=== PATIENT | female | born 1975 | race Caucasian/White ===

== ENCOUNTER 2016-12-21 21:31 | Emergency (ER) | payer OTHER ==
--- NOTE | 2016-12-21 21:48 | PDOC ---
History of Present Illness - History of Present Illness Initial Comments: 12/21/16 22:42 Patient is a 41 year old female with significant medical hx of acid reflux who is presenting to the ED with heartburn for the past week. Patient reports that she's been having acid reflux more than usual this past week especially after she eats and when she's lying down at night. She's complaining of throat pain, difficulty swallowing, and dry cough. Her pain begins in the epigastric region and radiates up to her ears. Social Hx/Diet: Patient reports she drinks a lot of soda and coffee every day. Denies tobacco or alcohol use. Denies URI symptoms. PCP: Lizette Brito MD <Priyanka Pearce - Last Filed: 12/22/16 00:17> <Lily Avery - Last Filed: 12/22/16 00:46> - General Stated Complaint: ACID REFLUX Time Seen by Provider: 12/21/16 21:47 Past History <Priyanka Pearce - Last Filed: 12/22/16 00:17> - Past Medical History Psychiatric Problems: Yes (ANXIETY,OCD) Suicide Attempt (Hx): No - Immunization History Immunization Up to Date: Yes - Psycho/Social/Smoking Cessation Hx Anxiety: Yes Suicidal Ideation: No Smoking History: Never smoked Have you smoked in the past 12 months: No Hx Alcohol Use: No Drug/Substance Use Hx: No Substance Use Type: None <Lily Avery - Last Filed: 12/22/16 00:46> - Past Medical History Allergies/Adverse Reactions: Allergies Allergy/AdvReac Type Severity Reaction Status Date / Time cephalexin Allergy Severe Swelling Verified 12/21/16 23:05 Home Medications: Ambulatory Orders Sertraline HCl [Zoloft -] 25 mg PO DAILY 06/16/16 Review of Systems - Review of Systems Comments:: 12/21/16 22:47 CONSTITUTIONAL: Absent: fever, chills, diaphoresis, generalized weakness, malaise, loss of appetite HEENT: Present: throat pain, difficulty swallowing Absent: rhinorrhea, nasal congestion, throat swelling, mouth swelling, ear pain , eye pain, visual changes CARDIOVASCULAR: Absent: chest pain, syncope, palpitations, irregular heart rate, lightheadedness , peripheral edema RESPIRATORY: Present: dry cough Absent: shortness of breath, dyspnea with exertion, orthopnea, wheezing, stridor , hemoptysis GASTROINTESTINAL: Present: acid reflux, epigastric pain Absent: abdominal distension, nausea, vomiting, diarrhea, constipation, melena, hematochezia GENITOURINARY: Absent: dysuria, frequency, urgency, hesitancy, hematuria, flank pain, genital pain MUSCULOSKELETAL: Absent: myalgia, arthralgia, joint swelling SKIN: Absent: rash, itching, pallor HEMATOLOGIC/IMMUNOLOGIC: Absent: easy bleeding, easy bruising, lymphadenopathy, frequent infections ENDOCRINE: Absent: unexplained weight gain, unexplained weight loss, heat intolerance, cold intolerance NEUROLOGIC: Absent: headache, focal weakness or paresthesia, dizziness, unsteady gait, seizure, mental status changes, bladder or bowel incontinence. PSYCHIATRIC: Absent: anxiety, depression, suicidal or homicidal ideation, hallucinations <Priyanka Pearce - Last Filed: 12/22/16 00:17> *Physical Exam - Physical Exam Comments: 12/21/16 22:48 GENERAL: Well developed, well nourished. Awake and alert. No acute distress. HEENT: Normocephalic, atraumatic. PERRLA, EOMI. No conjunctival pallor. Sclera are non- icteric. Moist mucous membranes. Oropharynx is clear. NECK: Supple. Full ROM. No JVD. Carotid pulses 2+ and symmetric, without bruits. No thyromegaly. No lymphadenopathy. CARDIOVASCULAR: Regular rate and rhythm. No murmurs, rubs, or gallops. Distal pulses are 2+ and symmetric. PULMONARY: No evidence of respiratory distress. Lungs clear to auscultation bilaterally. No wheezing, rales or rhonchi. ABDOMINAL: Soft. Non-tender. Non-distended. No rebound or guarding. No organomegaly. Normoactive bowel sounds. MUSCULOSKELETAL: Normal range of motion at all joints. No bony deformities or tenderness. No CVA tenderness. EXTREMITIES: No cyanosis. No clubbing. No edema. No calf tenderness. SKIN: Warm and dry. Normal capillary refill. No rashes. No jaundice. NEUROLOGICAL: Alert, awake, appropriate. Cranial nerves 2-12 intact. Normal speech. Gait is normal without ataxia. PSYCHIATRIC: Cooperative. Good eye contact. Appropriate mood and affect. <Priyanka Pearce - Last Filed: 12/22/16 00:17> Heart Score/ECG Review #1 12/22/16 00:17 Normal sinus rhythm at 64 bpm Normal ECG <Priyanka Pearce - Last Filed: 12/22/16 00:17> *DC/Admit/Observation/Transfer - Attestations Scribe Attestion: 12/21/16 22:49 Documentation prepared by Priyanka Pearce, acting as medical language specialist for Lily Avery MD. <Priyanka Pearce - Last Filed: 12/22/16 00:17> <Lily Avery - Last Filed: 12/22/16 00:46> Diagnosis at time of Disposition: Cough Gastroesophageal reflux disease Qualifiers: Esophagitis presence: with esophagitis Qualified Code(s): K21.0 - Gastro- esophageal reflux disease with esophagitis - Discharge Dispostion Disposition: HOME Condition at time of disposition: Stable - Referrals Referrals: Lizette Cordova MD [Primary Care Provider] - - Patient Instructions Printed Discharge Instructions: DI for Gastroesophageal Reflux Disease (GERD), DI for Cough -- Adult Additional Instructions: please supervisor picking crew your prescriptions at [facility] pharmacy followup with your regular physician
[2016-12-21] MEDS ORDERED: MAG HYDROX/AL HYDROX/SIMETH 30 ML UNIT-DOSE CUP PO ONE (22:21)
[2016-12-21] MEDS ORDERED: RANITIDINE HCL 150 MG TABLET (FP) PO ONE (22:21)
[2016-12-21 22:43] VITALS: BP 124/77; PULSE 77; TEMP 98.7; BMI 24.0
[2016-12-22] MEDS ORDERED: guaiFENesin/CODEINE 10 ML UNIT-DOSE CUPS PO ONE (00:43)
[2016-12-22] MEDS ORDERED: guaiFENesin/CODEINE 5 ML UNIT-DOSE CUPS PO ONE (00:47)
--- NOTE | 2016-12-22 23:20 | EKG ---
Test Reason : Blood Pressure : / mmHG Vent. Rate : 064 BPM Atrial Rate : 064 BPM P-R Int : 160 ms QRS Dur : 084 ms QT Int : 400 ms P-R-T Axes : 032 057 035 degrees QTc Int : 412 ms NORMAL SINUS RHYTHM NONSPECIFIC T WAVE ABNORMALITY WHEN COMPARED WITH ECG OF 08-JUL-2009 10:04, T WAVE VARIATION Confirmed by KIRIT FREY MD ([id number]) on 12/22/2016 11:20:40 PM Referred By: Confirmed By:KIRIT FREY MD
== END 2016-12-22 00:53 | disposition home or self-care (01) ==
LOC: JER 21:31
DX: K21.0 Gastro-esophageal reflux disease with esophagitis (principal)
CPT/HCPCS: 93005; 93010; 99283-25

== ENCOUNTER 2017-07-03 22:05 | Emergency (ER) | payer OTHER ==
[2017-07-03 22:16] VITALS: BP 140/99; PULSE 68; TEMP 98; BMI 31.2
[2017-07-03] MEDS ORDERED: TETANUS AND DIPHTHERIA TOXOID 0.5 ML DISP.SYRIN IM ONE (22:30)
--- NOTE | 2017-07-03 22:30 | PDOC ---
History of Present Illness - General History Source: Patient Exam Limitations: No Limitations - History of Present Illness Initial Comments: 07/03/17 23:12 41-year-old female presents to the emergency department complaining of an injury to her left great toe. Patient states while she was unfolding a day bed, the metal edge accidentally hit the distal part of her great left toenail causing the distal half of her nail everted upward. Bleeding controlled with direct pressure prior to her arrival. Patient denies extremity numbness or tingling sensation. Patient denies any other injuries. Unknown last tetanus. Timing/Duration: 1/2 hour Associated Symptoms: reports: denies symptoms <Rene Roman - Last Filed: 07/03/17 23:07> <River Jose - Last Filed: 07/03/17 23:17> - General Chief Complaint: Pain Stated Complaint: TOE INJURY Time Seen by Provider: 07/03/17 22:22 Past History - Past Medical History Psychiatric Problems: Yes (ANXIETY,OCD) Suicide Attempt (Hx): No - Immunization History Immunization Up to Date: Yes - Psycho/Social/Smoking Cessation Hx Anxiety: Yes Suicidal Ideation: No Smoking History: Never smoked Have you smoked in the past 12 months: No Information on smoking cessation initiated: No Hx Alcohol Use: No Drug/Substance Use Hx: No Substance Use Type: None <Rene Roman - Last Filed: 07/03/17 23:07> <River Jose - Last Filed: 07/03/17 23:17> - Past Medical History Allergies/Adverse Reactions: Allergies Allergy/AdvReac Type Severity Reaction Status Date / Time cephalexin Allergy Severe Swelling Verified 07/03/17 22:11 Home Medications: Ambulatory Orders Sertraline HCl [Zoloft] 100 mg PO DAILY 07/03/17 Review of Systems - Review of Systems Able to Perform ROS?: Yes Comments:: 07/03/17 22:28 All other ROS reviwed and are negative MUSCULOSKELETAL: Absent: myalgia, arthralgia, joint swelling SKIN: Absent: rash, itching, pallor HEMATOLOGIC/IMMUNOLOGIC: Absent: easy bleeding, easy bruising, lymphadenopathy, frequent infections left great toe; distal half nail everted upwards Is the patient limited Slovenian proficient: No <Rene Roman - Last Filed: 07/03/17 23:07> *Physical Exam - Vital Signs Last Vital Signs Temp Pulse Resp BP Pulse Ox 98.0 F 68 20 140/99 98 07/03/17 22:12 07/03/17 22:12 07/03/17 22:12 07/03/17 22:12 07/03/17 22:12 - Physical Exam Comments: 07/03/17 22:29 MUSCULOSKELETAL Normal range of motion at all joints. No bony deformities or tenderness. No CVA tenderness. EXTREMITIES: No cyanosis. No clubbing. No edema. No calf tenderness. SKIN: Warm and dry. Normal capillary refill. No rashes. No jaundice. left great toe distal mid nail everted upward superficial distal nailbed avulsion lac cap refill <2sec <Rene Roman - Last Filed: 07/03/17 23:07> - Vital Signs Last Vital Signs Temp Pulse Resp BP Pulse Ox 98.0 F 68 20 140/99 98 07/03/17 22:12 07/03/17 22:12 07/03/17 22:12 07/03/17 22:12 07/03/17 22:12 <River Jose - Last Filed: 07/03/17 23:17> Procedures - Additional Procedures Progress: 07/03/17 23:13 Nail avulsion wound repair: Site prepped with betadine. Digital block to the 1st metatarsal of the left foot: 7 ccs of 2% lidocaine Wound irrigated with normal NS. No lacerations noted on exploration. Distal 1/3 of the exposed avulsed nail trimmed and removed. Sterile dressing applied. <River Jose - Last Filed: 07/03/17 23:17> ED Treatment Course - Medications Given in the ED: ED Medications Discontinued Medications Generic Name Dose Route Start Last Admin Trade Name Freq PRN Reason Stop Dose Admin Lidocaine HCl 3 ml 07/03/17 22:36 07/03/17 22:38 Xylocaine 1% SQ 07/03/17 22:37 3 ml ONCE ONE Administration Tetanus/Diphtheria Toxoids Adsorbed 0.5 ml 07/03/17 22:30 07/03/17 22:34 Decavac IM 07/03/17 22:31 0.5 ml .ONCE ONE Administration <River Jose - Last Filed: 07/03/17 23:17> *DC/Admit/Observation/Transfer - Discharge Dispostion Admit: No <Rene Roman - Last Filed: 07/03/17 23:07> <River Jose - Last Filed: 07/03/17 23:17> Diagnosis at time of Disposition: Avulsion of skin of toe Qualifiers: Encounter type: initial encounter Qualified Code(s): S91.109A - Unspecified open wound of unspecified toe(s) without damage to nail, initial encounter - Discharge Dispostion Disposition: HOME Condition at time of disposition: Stable - Referrals Referrals: Mo Fenton MD [Staff Physician] - - Patient Instructions Additional Instructions: Keep the toe clean and dry for 24 hours Keep the incision clean and dry for 24 hours. After 24 hours, you may allow the soap and water to rinse off your incision. Avoid direct pressure of the water to the incision. Pat the incision dry with a clean clothe. Apply a small amount of bacitracin onto the incision. Cover the incision loosely with a bandaid. Take tylenol/motrin as needed for pain. Follow up with your physician or the ER in 48 hours for a wound check. Return to the ER if you notice red streaks, increase redness/swelling/severe pain to the incision.
[2017-07-03] MEDS ORDERED: LIDOCAINE HCL 1%, 10 MG/ML (50 mL VIAL) SQ ONE (22:36)
[2017-07-03] MEDS ORDERED: LIDOCAINE HCL 2% (20ML MULTI-DOSE VIAL) NR ONE (22:37)
== END 2017-07-03 23:18 | disposition home or self-care (01) ==
LOC: JER 22:05
PROC: 0HDRXZZ Extraction of Toe Nail, External Approach (ICD-10-PCS; principal; 2017-07-03)
DX: S91.109A Unspecified open wound of unspecified toe(s) without damage to nail, initial encounter (principal); F41.9 Anxiety disorder, unspecified
CPT/HCPCS: 11730; 99282-25

== ENCOUNTER 2019-05-20 18:09 | Emergency (ER) | payer OTHER ==
[2019-05-20 18:15] VITALS: BMI 30.9
--- NOTE | 2019-05-20 18:40 | PDOC ---
History of Present Illness - General Chief Complaint: Hemorrhoids Stated Complaint: ABD PAIN Time Seen by Provider: 05/20/19 18:40 History Source: Patient Exam Limitations: No Limitations - History of Present Illness Initial Comments: 05/20/19 19:01 43 year old female with PMH hemorrhoids, anxiety, OCD presented to ED for rectal pain x5 days. Pt reported that she had a hemorrhoidectomy 05/09/[address] Reyes, and was feeling better, but 5 days ago began having rectal pain again. Pt reported constipation, as it is very painful for her to use the restroom, she stated she has not had a full solid bowel movement sine the procedure, and has had loose stool. Pt is currently using 1 Percocet BID, Lactulose, Miralax, Fiber, sitz baths. Surgical history: tubal ligation, hemorrhoidectomy Past History - Past Medical History Allergies/Adverse Reactions: Allergies Allergy/AdvReac Type Severity Reaction Status Date / Time cephalexin Allergy Severe Swelling Verified 05/20/19 18:15 Home Medications: Ambulatory Orders Sertraline HCl [Zoloft] 100 mg PO DAILY 07/03/17 Lactulose 10 gm PO TID 05/20/19 Lidocaine 2% Uro-Jet [Xylocaine 2% Uro-Jet] 5 ml WI BID PRN #2 cartridge Oxycodone HCl/Acetaminophen [Percocet 5-325 mg Tablet] 1 tab PO BID 05/20/19 [id number]/Sod Sulf,Bicarb,Cl/KCl [Golytely Solution] 4,000 ml PO ONCE #1 soln.recon 05/20/19 COPD: No Psychiatric Problems: Yes (ANXIETY,OCD) - Immunization History Immunization Up to Date: Yes - Suicide/Smoking/Psychosocial Hx Smoking History: Never smoked Have you smoked in the past 12 months: No Hx Alcohol Use: No Drug/Substance Use Hx: No Substance Use Type: None Review of Systems - Review of Systems Able to Perform ROS?: Yes Comments:: 05/20/19 18:53 General: denied fever, chills, generalized weakness. HEENT: denied sore throat, rhinorrhea, ear pain. Heart: denied chest pain, palpitations, syncope, diaphoresis. Respiratory: denied shortness of breath, cough, sputum production, hemoptysis. Abdomen: admitted to constipation, rectal pain, abdominal pain. denied nausea, vomiting, diarrhea, blood in stool. : denied dysuria, increased urinary frequency, hematuria, urinary incontinence , flank pain. Back: denied back pain. Musculoskeletal: denied joint pain, muscle pain, joint swelling. Neurological: denied headache, dizziness, numbness, tingling, weakness. Skin: denied rash, laceration, abrasion. *Physical Exam - Vital Signs Last Vital Signs Temp Pulse Resp BP Pulse Ox 98.2 F 88 18 124/85 98 05/20/19 18:12 05/20/19 18:12 05/20/19 18:12 05/20/19 18:12 05/20/19 18:12 - Physical Exam Comments: 05/20/19 18:53 Constitutional: Well-nourished, Well-developed, appearing stated age. HEENT: head is normocephalic, atraumatic. EOMI. PERRLA. Neck: supple. Full ROM. Heart: regular rhythm. no murmurs, rubs or gallops. Lungs: clear to auscultation bilaterally. no crackles, rhonchi or wheezing. no stridor. Abdomen: soft, nontender, flat. normal bowel sounds. no rebound, guarding, masses. Rectal: multiple external hemorrhoids. hard stool in rectal vault. tenderness to palpation of hemorrhoid at the 1200 position. no abscess. Extremities: peripheral pulses intact. no lower extremity edema. Neurological: CN 2-12 grossly intact. moves all four extremities. Psych: anxious. awake, alert, oriented x3. follows commands. answers questions appropriately. Medical Decision Making - Medical Decision Making 05/20/19 18:54 43 year old female with above PMH presented to ED for rectal pain, abdominal pain and constipation. No full BM since recent hemorrhoidectomy 05/09/[address] Reyes (who is currently out of town). Initial Vital Signs Temp Pulse Resp BP Pulse Ox 98.2 F 88 18 124/85 98 05/20/19 18:12 05/20/19 18:12 05/20/19 18:12 05/20/19 18:12 05/20/19 18:12 Afebrile. No tachycardia. No tachypnea. No hypotension. No hypoxia on room air. Labs ordered: none Imaging ordered: none Medications ordered: Perocet X1 once, urojet, fleet enema 05/20/19 21:46 Pt received Enema but now is reporting increased rectal pain. Medications ordered: Methylnaltrexone 12 mg SQ once, toradol 60 mg IM once 05/20/19 23:27 Pt reported having a few small bowel movements. Pt requesting discharge. Discharge medications: GoLytely, Urojet 5 mL BID PRN Pain *DC/Admit/Observation/Transfer Diagnosis at time of Disposition: Hemorrhoid - Discharge Dispostion Disposition: HOME Condition at time of disposition: Improved Decision to Admit order: No - Prescriptions Prescriptions: Lidocaine 2% Uro-Jet [Xylocaine 2% Uro-Jet] 5 ml WI BID PRN #2 cartridge PRN Reason: Pain [id number]/Sod Sulf,Bicarb,Cl/KCl [Golytely Solution] 4,000 ml PO ONCE #1 soln.recon - Referrals Referrals: Eddi Reyes MD [Staff Physician] - - Patient Instructions Printed Discharge Instructions: DI for Hemorrhoids Additional Instructions: Follow up with Dr. Reyes's office within three days, attend your appointment on 01/10. Your care is not complete until you follow up. Bring all paperwork given to you today to your appointment. Take Tylenol 1000 mg every 6-8 hours as needed for pain. Buy over the counter. Oxycodone will cause constipation, which will worsen your pain. Avoid using the oxycodone you were prescribed. I have sent a prescription for GoLytely to your pharmacy, which will aid you in having a bowel movement. Pick it up and drink it while at home. I have sent a prescription for Lidocaine Jets to your pharmacy, apply to your rectal area up to twice a day for pain relief. Return to the Emergency Department for increasing pain despite Tylenol use, fever, vomiting, chest pain, shortness of breath, lightheadedness like you may pass out, blood mixed inside the stool (not just on the toilet paper) or any other new, worsening or concerning symptom. - Post Discharge Activity Forms/Work/School Notes: Back to Work
[2019-05-20] MEDS ORDERED: LIDOCAINE HCL 2% JELLY 10 ML CARTRIDGE PR ONE (19:37)
[2019-05-20] MEDS ORDERED: LIDOCAINE HCL 2% JELLY 10 ML CARTRIDGE ONE ×2 (19:43→19:59)
--- NOTE | 2019-05-20 19:44 | PDOC ---
Documentation entered by Linda Cisneros SCRIBE, acting as scribe for Lakshmi Patel MD. Lakshmi Patel MD: This documentation has been prepared by the scribe, Linda Cisneros SCRIBE, under my direction and personally reviewed by me in its entirety. I confirm that the documentation accurately reflects all work, treatment, procedures, and medical decision making performed by me. Attending Attestation - Resident Resident Name: PatienceAshli - ED Attending Attestation I have performed the following: I have examined & evaluated the patient, The case was reviewed & discussed with the resident, I agree w/resident's findings & plan, Exceptions are as noted - HPI HPI: 05/20/19 19:19 The patient is a 43 year old female with a significant past medical history of Hemorrhoids, anxiety and GERD who presents to the emergency department with increased rectal pain for 5 days. The patient reports that she had a hemorrhoidectomy on 05/09. She states that after her procedure she was feeling fine but states that for the past 5 days she has been experiencing some associated abdominal pressure with her rectal pain as well as diarrhea and painful bm. She denies any fever, chills, nausea, vomiting, constipation or urinary symptoms. She denies any chest pain, shortness of breath, headache, dizziness, or weakness. The patient denies any other symptoms or complaints. - Physicial Exam PE: GENERAL: Awake, alert, and fully oriented, in no acute distress HEAD: No signs of trauma EYES: PERRLA, EOMI, sclera anicteric, conjunctiva clear ENT: Auricles normal inspection, hearing grossly normal, nares patent, oropharynx clear without exudates. Moist mucosa NECK: Normal ROM, supple, no lymphadenopathy, JVD, or masses LUNGS: Breath sounds equal, clear to auscultation bilaterally. No wheezes, and no crackles HEART: Regular rate and rhythm, normal S1 and S2, no murmurs, rubs or gallops ABDOMEN: Soft, nontender, normoactive bowel sounds. No guarding, no rebound. No masses EXTREMITIES: Normal range of motion, no edema. No clubbing or cyanosis. No cords, erythema, or tenderness NEUROLOGICAL: Cranial nerves II through XII grossly intact. Normal speech, normal gait. Motor and sensation intact SKIN: Warm, Dry, normal turgor, no rashes or lesions noted. RECTAL: Multiple large hemorrhoids noted, healing lesion at the 9 o'clock position. No swelling, no drainage. - Medical Decision Making Will attempt to ease her pain with local lidocaine gel, then will give enema, as it is likely the hard stool that is causing her symptoms. If she is unable to tolerate (due to local pain), will consider laxatives or possibly GoLytely to help her pass stool.
[2019-05-20] MEDS ORDERED: SODIUM PHOSPHATE/NA BIPHOS 133 ML ENEMA PR ONE (21:24)
[2019-05-20] MEDS ORDERED: KETOROLAC TROMETHAMINE 60 MG/2 ML VIAL IM ONE (21:44)
[2019-05-20] MEDS ORDERED: Methylnaltrexone Bromide 12 MG/0.6 ML KIT SQ ONE (21:44)
[2019-05-20] MEDS ORDERED: KETOROLAC TROMETHAMINE 60 MG/2 ML VIAL ONE (22:30)
[2019-05-20 23:20] VITALS: BP 140/94; PULSE 75; TEMP 98.9
== END 2019-05-20 23:54 | disposition home or self-care (01) ==
LOC: JER 18:09
PROC: 3E0233Z Introduction of Anti-inflammatory into Muscle, Percutaneous Approach (ICD-10-PCS; principal; 2019-05-20)
PROC: 3E023GC Introduction of Other Therapeutic Substance into Muscle, Percutaneous Approach (ICD-10-PCS; 2019-05-20)
DX: K64.9 Unspecified hemorrhoids (principal); Z98.890 Other specified postprocedural states
CPT/HCPCS: 96372; 99283-25

== ENCOUNTER 2019-06-03 20:19 | Emergency (ER) | payer OTHER ==
[2019-06-03 20:30] VITALS: BP 134/97; PULSE 105; TEMP 97.4; BMI 33.6
[2019-06-03] MEDS ORDERED: ACETAMINOPHEN 1000 MG/100 ML VIAL (NON FORMULARY) IVPB ONE (21:03)
[2019-06-03] MEDS ORDERED: LIDOCAINE HCL 4% TOPICAL SOLN (50 ML/BOTTLE) MM ONE (21:03)
[2019-06-03] MEDS ORDERED: SODIUM CHLORIDE 1,000 ML IV STA (21:04)
[2019-06-03] MEDS ORDERED: ACETAMINOPHEN INJECTION 100 ML IVPB ONE (21:18)
--- NOTE | 2019-06-03 21:33 | PDOC ---
History of Present Illness - General Chief Complaint: Pain Stated Complaint: PAIN Time Seen by Provider: 06/03/19 20:42 History Source: Patient Exam Limitations: No Limitations - History of Present Illness Initial Comments: 06/03/19 21:21 43yo woman PMH anxiety, OCD, hemorrhoids s/p hemorrhoidectomy last month with Dr. Reyes presenting with worsening perianal pain. She reports being see May 20 and receiving an enema, then seeing her surgeon May 26 and being continued on tylenol / ibuprofen q8 hours. Endorses worse pain with defecation or gas and intermittent resolution without intervention. She is on a liquid diet and has had a shake, soup broth, and water today. She reports feeling weak and dehydrated. Also mentions that her left thigh appears swollen. Endorses intermittent fevers and chills. Last BM was midday today and was semi formed ( stool in diaper at time of exam) without any blood. PMH: see above PSH: above + tubal ligation Allergy: cephalexin Past History - Travel Traveled outside of the country in the last 30 days: No Close contact w/someone who was outside of country & ill: No - Past Medical History Allergies/Adverse Reactions: Allergies Allergy/AdvReac Type Severity Reaction Status Date / Time cephalexin Allergy Severe Swelling Verified 05/20/19 18:15 Home Medications: Ambulatory Orders Sertraline HCl [Zoloft] 100 mg PO DAILY 07/03/17 Lactulose 10 gm PO TID 05/20/19 Lidocaine 2% Uro-Jet [Xylocaine 2% Uro-Jet] 5 ml AL BID PRN #2 cartridge Oxycodone HCl/Acetaminophen [Percocet 5-325 mg Tablet] 1 tab PO BID 05/20/19 [id number]/Sod Sulf,Bicarb,Cl/KCl [Golytely Solution] 4,000 ml PO ONCE #1 soln.recon 05/20/19 COPD: No Psychiatric Problems: Yes (ANXIETY,OCD) - Surgical History GI Surgery: Yes (hemmorhoidectomy 05/2019) - Immunization History Immunization Up to Date: Yes - Suicide/Smoking/Psychosocial Hx Smoking History: Never smoked Have you smoked in the past 12 months: No Hx Alcohol Use: No Drug/Substance Use Hx: No Substance Use Type: None Review of Systems - Review of Systems Able to Perform ROS?: Yes Is the patient limited Tajik proficient: No Constitutional: Yes: Chills, Fever (subjective), Weakness. No: Loss of Appetite HEENTM: No: Symptoms Reported Respiratory: No: Symptoms reported Cardiac (ROS): No: Symptoms Reported ABD/GI: Yes: Poor Fluid Intake. No: Symptoms Reported : No: Symptoms Reported Musculoskeletal: No: Symptoms Reported Integumentary: No: Symptoms Reported Neurological: No: Symptoms reported Psychiatric: Yes: Anxiety All Other Systems: Reviewed and Negative *Physical Exam - Vital Signs Last Vital Signs Temp Pulse Resp BP Pulse Ox 97.4 F L 105 H 18 134/97 96 06/03/19 20:27 06/03/19 20:27 06/03/19 20:27 06/03/19 20:27 06/03/19 20:27 - Physical Exam Comments: 06/03/19 21:34 Vitals reviewed, notable for tachycardia, afebrile Gen: WDWN woman, appears is pain, intermittently tearful / frightened CV: RRR, normal s1/s2, no murmurs appreciated Pulm: CTABL, normal WOB, no wheezes rales or rhonchi Abd: soft, nontender, nondistended Skin: warm, dry, no rashes evident, anus without swelling / erythema, initially with fecal matter present Ext: warm and well perfused, no clubbing cyanosis or edema, left leg mildly swollen, no erythema, not warm, not tender to palpation, no overlying skin changes, no crepitus Neruo: alert and oriented, MAEE, good strength 06/03/19 22:36 Once clean: rectum without swelling, erythema, or other signs of infection. ED Treatment Course - LABORATORY CBC & Chemistry Diagram: 06/03/19 21:14 06/03/19 21:14 Medical Decision Making - Medical Decision Making 06/03/19 21:38 43yo woman PMH anxiety, OCD, hemorrhoids s/p hemorrhoidectomy last month with Dr. Reyes presenting with worsening perianal pain. History notable for absence of blood, correlation of symptoms with gas or BMs, subjective fevers. Physical exam without infectious signs. Tachycardia likely 2/2 dehydration in setting of poor PO - will give 1L NS bolus. Avoiding opioids due to recent use and concern for iatrogenic constipation. - CBC, CMP. CRP - IV acetaminophen 1000mg - Topical lidocaine - 1L NS 06/03/19 22:23 - Leukocytosis to 12.7, 10.1 neutrophils, CRP 1 - Minimal inflammation expected in the setting of healing hemorrhoidectomy - Patient responding well to 1L NS, pain control with lido and acetaminophen - Normal HR upon reassessment (~80bpm), likely 2/2 fluids and reduced pain - Will provide gel lidocaine to go home with Dispo: home with instructions for close f/u with Dr. Reyes *DC/Admit/Observation/Transfer Diagnosis at time of Disposition: Anal or rectal pain - Discharge Dispostion Disposition: HOME Condition at time of disposition: Improved Decision to Admit order: No - Referrals - Patient Instructions Printed Discharge Instructions: DI for Hemorrhoidectomy Additional Instructions: You were seen and evaluated for rectal pain. Please follow up with you surgeon at your earliest convenience (call on Wednesday). In the meantime, please seek emergency care for worsening pain, bright red blood per rectum, fevers, chills, dizziness, severe weakness, inability to take nutrition by mouth. As discussed, alternate your pain medications to ensure adequate coverage. Avoid opiates as they cause constipation. Include electrolyte containing beverages throughout the day to avoid dehydration. You have been provided with lidocaine gel to use as needed for rectal pain. Print Language: MACEDONIAN - Post Discharge Activity
[2019-06-03 21:44] LABS: ALBUMIN 3.7 g/dl (3.4-5.0); BILIRUBIN,TOTAL 0.4 mg/dL (0.2-1); BLOOD UREA NITROGEN 15.5 mg/dL (7-18); CALCIUM 9.3 mg/dL (8.5-10.1); CREATININE 0.9 mg/dL (0.55-1.3); POTASSIUM 3.3 mmol/L (3.5-5.1); TOT PROT 7.8 g/dl (6.4-8.2)
--- NOTE | 2019-06-03 22:03 | PDOC ---
Documentation entered by Kristin Gaona SCRIBE, acting as scribe for Olivia Landers MD. Olivia Landers MD: This documentation has been prepared by the rheaibe, Kristin Gaona SCRIBE, under my direction and personally reviewed by me in its entirety. I confirm that the documentation accurately reflects all work, treatment, procedures, and medical decision making performed by me. Attending Attestation - Resident Resident Name: Satinder Zuleta - ED Attending Attestation I have performed the following: I have examined & evaluated the patient, The case was reviewed & discussed with the resident, I agree w/resident's findings & plan, Exceptions are as noted - HPI HPI: 06/03/19 21:55 The patient is a 43-year-old female with a past medical history significant for hemorrhoids s/p hemorrhoidectomy (05/09), OCD and anxiety present to the emergency department with rectal pain. The patient reports shes been having chronic rectal pain since the surgery, however after a bowel movement today, the pain increased in severity. The patient was seen at the ER on 05/20 for constipation, with relief after enema. The patient reports following up with Dr. Reyes (surgeon) after the ER visit, who told her she had another 4 weeks of recovery and continue ibuprofen and Tylenol for pain. Allergies: cephalexin Surgical history: tubal ligation, hemorrhoidectomy - Physicial Exam PE: 06/03/19 21:55 GENERAL: Awake, alert and oriented. The patient is in no acute distress. Appears uncomfortable. The patient was in a position when we walked in. ENT: Ears normal, nares patent, oropharynx clear without exudates. Moist mucous membranes. NECK: Normal range of motion, supple, no nuchal rigidity LUNGS: Breath sounds equal, clear to auscultation bilaterally. No wheezes, and no crackles. HEART: Regular rate and rhythm, normal S1 and S2 without murmurs, rubs or gallops. ABDOMEN: Soft, nontender. No guarding, no rebound. No masses palpable. EXTREMITIES: Normal range of motion, no edema. Rectal exam: deferred, patient refused. NEUROLOGICAL: Answering all questions. Cranial nerves II through XII grossly intact. Normal speech. No focal neurological deficits. SKIN: Warm, Dry, normal turgor, no rashes or lesions noted. - Medical Decision Making 06/03/19 21:33 Ms Davis presents to the ER again secondary to rectal pain s/p hemorrhoidectomy on 05/09/19 Pt has now returned to this ER twice since this procedure She was seen for constipation, given an enema with relief. She followed up with her surgeon - Dr. Reyes - who told her that she would have an additional 4 weeks of recovery and encouraged her to take tylenol and motrin in alternation for pain Pt has been taking tylenol and motrin together She has done a liquid diet for the most part She has been having bowel movement, intermittent rectal pain Today, however, after a bowel movement she developed severe rectal pain which has been intractable 06/03/19 21:34 Pt pain is unbearable Pt refusing rectal examination of any kind DD: Local swelling, local irritation, perianal abscess/fistula, internal sphincter injury/stricture, fecal impaction Symptoms most likely due to local irritation 2/2 bowel movement Will do: Labs IVF Tylenol IV Lidocaine topically Surgical consult ReAssess 06/03/19 21:[address] Reyes at 9:39, left a voicemail, waiting for a call back. 06/03/19 22:[address] back from Dr Reyes Pt is comfortable, resting in bed, pain resolved Pt asked to follow Dr Reyes's instructions to alternate Tylenol and Motrin every 4 hours and to use viscous lidocaine Pt asked to GO SEE DR. REYES on Wednesday06/03/19 22:52 Clinical Impression: local irritation
[2019-06-03] MEDS ORDERED: LIDOCAINE HCL 2% JELLY (5 ML/TUBE) ONE (22:07)
[2019-06-03 22:15] LABS: BASO % 0.7 % (0-2.0); EOS % 1.3 % (0-4.5); HEMATOCRIT 40.6 % (32.4-45.2); HEMOGLOBIN 13.7 GM/dL (10.7-15.3); LYMPH % 8.7 % (8-40); MCHC 33.8 g/dl (32.0-36.0); MEAN CELL VOLUME 91.7 fl (80-96); MEAN PLT VOLUME 7.9 fl (7.5-11.1); MONO % 10.1 % (3.8-10.2); NEUT % 79.2 % (42.8-82.8); PLATELET COUNT 417 K/MM3 (134-434); RBC 4.43 M/mm3 (3.60-5.2); RDW 14.3 % (11.6-15.6); WHITE BLOOD COUNT 12.7 K/mm3 (4.0-10.0)
== END 2019-06-03 22:57 | disposition home or self-care (01) ==
LOC: JER 20:19
PROC: 3E0337Z Introduction of Electrolytic and Water Balance Substance into Peripheral Vein, Percutaneous Approach (ICD-10-PCS; principal; 2019-06-03)
PROC: 3E033NZ Introduction of Analgesics, Hypnotics, Sedatives into Peripheral Vein, Percutaneous Approach (ICD-10-PCS; 2019-06-03)
DX: K62.89 Other specified diseases of anus and rectum (principal); Z86.59 Personal history of other mental and behavioral disorders
CPT/HCPCS: 36415; 80053; 85025; 86140; 96361; 96374; 99282-25; J0131; J7030

== ENCOUNTER 2022-04-19 19:28 | Emergency (ER) | payer OTHER ==
[2022-04-19 19:48] VITALS: BP 127/85; PULSE 60; TEMP 97.9; BMI 31.3
== END 2022-04-19 20:10 | disposition home or self-care (01) ==
LOC: JERFT 19:28 → JER 19:28 → JERFT 20:10
DX: L03.031 Cellulitis of right toe (principal)
CPT/HCPCS: 99281-25

== ENCOUNTER 2022-06-03 02:27 | Emergency (ER) | payer OTHER ==
[2022-06-03 03:29] VITALS: BP 154/96; PULSE 73; TEMP 98.8; BMI 31.3
[2022-06-03] MEDS ORDERED: METOCLOPRAMIDE HCL INJECTION 10 MG/2 ML VIAL IVPUSH ONE (04:12)
[2022-06-03] MEDS ORDERED: SODIUM CHLORIDE 0.9% 500 ML INFUS.BAG IV ONE (04:12)
[2022-06-03] MEDS ORDERED: ACETAMINOPHEN 1000 MG/100 ML BAG IVPB ONE (04:12)
[2022-06-03] MEDS ORDERED: METOCLOPRAMIDE HCL INJECTION 10 MG/2 ML VIAL ONE (04:41)
[2022-06-03] MEDS ORDERED: ACETAMINOPHEN INJECTION 100 ML IVPB ONE (04:41)
== END 2022-06-03 06:43 | disposition left against medical advice (07) ==
LOC: JER 02:27
PROC: 3E033GC Introduction of Other Therapeutic Substance into Peripheral Vein, Percutaneous Approach (ICD-10-PCS; principal; 2022-06-03)
DX: R51.9 Headache, unspecified (principal)
CPT/HCPCS: 99284-25

== ENCOUNTER 2024-04-09 16:13 | Emergency (ER) | payer BC, OTHER ==
[2024-04-09 16:18] VITALS: BP 149/85; PULSE 68; RESP 18; TEMP 98.2; BMI 33.5
[2024-04-09] MEDS ORDERED: KETOROLAC TROMETHAMINE 30 MG/1 ML VIAL ONE (17:12)
[2024-04-09] MEDS: KETOROLAC TROMETHAMINE 30 MG/1 ML VIAL IM ONE (17:15)
[2024-04-09] MEDS ORDERED: SULFAMETHOXAZOLE/TRIMETHOPRIM 800MG/160MG D.S. TABLET ONE (17:42)
[2024-04-09] MEDS: SULFAMETHOXAZOLE/TRIMETHOPRIM 800MG/160MG D.S. TABLET PO ONE (17:46)
== END 2024-04-09 17:48 | disposition home or self-care (01) ==
LOC: JER 16:13 → JERFT 16:13
PROC: 3E0233Z Introduction of Anti-inflammatory into Muscle, Percutaneous Approach (ICD-10-PCS; principal; 2024-04-09)
DX: M79.645 Pain in left finger(s) (principal); M79.89 Other specified soft tissue disorders; L03.012 Cellulitis of left finger
CPT/HCPCS: 73070-TC-LT-FY; 73130-TC-LT-FY; 99284-25

== ENCOUNTER 2025-09-03 17:39 | Emergency (ER) | payer BC ==
[2025-09-03 17:51] VITALS: BP 131/85; PULSE 73; RESP 18; TEMP 98.1; BMI 32.8
[2025-09-03] MEDS ORDERED: CLINDAMYCIN HCL 150 MG CAPSULE (FP) ONE (18:45)
[2025-09-03] MEDS: CLINDAMYCIN HCL 150 MG CAPSULE (FP) PO ONE (18:49)
== END 2025-09-03 18:51 | disposition home or self-care (01) ==
LOC: JER 17:39
DX: L03.116 Cellulitis of left lower limb (principal)
CPT/HCPCS: 76882-TC-LT; 99284-25